=== PATIENT | male | born 1960 | race Caucasian/White ===

== ENCOUNTER 2022-03-29 07:00 | Emergency (ER) | payer OTHER ==
[~2022-03-29] VITALS: Ht 182.9 cm; Wt 88.0 kg
[~2022-03-29 07:00] MED LIST: INTERFERON; [UNRECOGNIZED DRUG - CODE] PO
[2022-03-29 07:47] VITALS: BP 122/75
[2022-03-29] MEDS ORDERED: AMOX-277 PO ×2 (07:50→12:16)
== END 2022-03-29 12:10 | disposition home or self-care (01) ==
LOC: ER 07:00
DX: J02.9 Acute pharyngitis, unspecified (principal); Z79.2 Long term (current) use of antibiotics; Z79.899 Other long term (current) drug therapy